=== PATIENT | male | born 1945 | race Caucasian/White ===

== ENCOUNTER → 2016-12-04 | Outpatient (CLI) | payer MEDICARE, BC ==
--- NOTE | 2016-12-04 18:12 | CARD ---
APPROVED REPORT EXAM: Two-dimensional and M-mode echocardiogram with Doppler and color Doppler. Other Information Quality : Average Rhythm : Atrial Fibrillation INDICATION Atrial Fibrillation 2D DIMENSIONS Left Atrium(2D)4.0 (1.6-4.0cm)IVSd0.9 (0.7-1.1cm) Aortic Root(2D)2.8 (2.0-3.7cm)LVDd4.7 (3.9-5.9cm) LVOT Diameter2.1 (1.8-2.4cm)PWd0.9 (0.7-1.1cm) LVDs3.2 (2.5-4.0cm)FS (%) 31.1 % SV60.6 mlLVEF(%)58.8 (>50%) Aortic Valve AoV Peak Lon.80.7cm/sAoV VTI17.4cm AO Peak GR.2.6mmHgLVOT Peak Lon.66.7cm/s LVOT VTI 13.87cmAO Mean GR.2mmHg AQUILES (VMAX)2.50nt0GUH (VTI)2.67cm2 Tricuspid Valve TR P. Hijaykdi423wx/sRAP [id number] TR Peak Gr.[id number] LEFT VENTRICLE The left ventricle is normal size. There is normal left ventricular wall thickness. Left ventricle sy stolic function is normal. The Ejection Fraction is 55-60%. There is normal LV segmental wall motion. Unable to assess diastolic function. RIGHT VENTRICLE The right ventricle is normal size. The right ventricular systolic function is normal. ATRIA The left atrium size is normal. The right atrium size is normal. The interatrial septum is intact wit h no evidence for an atrial septal defect or patent foramen ovale as noted on 2-D or Doppler imaging. AORTIC VALVE The aortic valve is normal in structure and function. The aortic valve is trileaflet. Doppler and Col or Flow revealed no significant aortic regurgitation. There is no significant aortic valvular stenosi s. MITRAL VALVE Mitral annular calcification is borderline. There is no mitral valve stenosis. Doppler and Color Flow revealed trace mitral regurgitation. TRICUSPID VALVE The tricuspid valve is normal in structure and function. Doppler and Color Flow revealed trace to mil d tricuspid regurgitation. The PA pressure was estimated at 34 mmHg. There is no tricuspid valve sten osis. PULMONIC VALVE The pulmonic valve is not well visualized. Doppler and Color Flow revealed no pulmonic valvular regur gitation. There is no pulmonic valvular stenosis. GREAT VESSELS The aortic root is normal in size. The ascending aorta is normal in size. Pulmonary veins not recorde d. The IVC is normal in size and collapses >50% with inspiration. PERICARDIAL EFFUSION There is no evidence of significant pericardial effusion. Critical Notification Critical Value: No <Conclusion> The left ventricle is normal size. Left ventricle systolic function is normal. The Ejection Fraction is 55-60%. There is no significant aortic valvular stenosis. Doppler and Color Flow revealed no significant aortic regurgitation. Doppler and Color Flow revealed trace mitral regurgitation. Doppler and Color Flow revealed trace to mild tricuspid regurgitation. The PA pressure was estimated at 34 mmHg. There is no evidence of significant pericardial effusion.
== END | disposition home or self-care (01) ==
LOC: ECHO 10:30
PROVIDERS: ATTEND Internal Medicine Cardiovascular Disease
DX: I08.1 Rheumatic disorders of both mitral and tricuspid valves (principal); I48.91 Unspecified atrial fibrillation
CPT/HCPCS: 93306